=== PATIENT | male | born 1995 | race African-American/Black ===

== ENCOUNTER 2019-09-06 17:02 | Emergency (ER) | payer OTHER, SELFPAY ==
--- NOTE | 2019-09-06 17:06 | ED.GENADULT ---
HPI - General Adult General Chief complaint: Unspecified Stated complaint: other Time Seen by Provider: 09/06/19 17:35 Source: patient and RN notes reviewed Mode of arrival: ambulatory Limitations: other (Deaf, written communication) History of Present Illness HPI narrative: 24 for male presents with concern for 2-3 week history of fatigue. Reports he sleeps for approximately 5- 8 hours a night but wakes up unrefreshed, tired. Reports he drinks caffeine every day. He occasionally drinks alcohol to try to help him sleep. He denies any change in schedule, new job, new hours, new medications. Denies fever, body aches, chills, sweats, cough, short of breath, upper respiratory symptoms, sore throat. He does not have a primary care provider. MD complaint: Fatigue Related Data Home Medications Medication Instructions Recorded Confirmed No Home Medications 09/06/19 09/06/19 Allergies Allergy/AdvReac Type Severity Reaction Status Date / Time No Known Allergies Allergy Verified 09/06/19 17:37 Review of Systems Review of Systems: Narrative: CONSTITUTIONAL: Denies malaise, chills, sweats, or fever. Reports fatigue EYES: Denies visual changes ENT: Denies rhinorrhea, congestion, sinus pain, otalgia or sore throat. CARDIOVASCULAR: Denies chest pain, palpitations, or edema. RESPIRATORY: Denies cough or dyspnea. GASTROINTESTINAL: Denies abdominal pain, nausea, vomiting, diarrhea MUSCULOSKELETAL: Denies myalgia. NEUROLOGIC: Denies numbness, weakness, or headache. PSYCHIATRIC: Denies anxiety or depression. All systems reviewed & are unremarkable except as noted in HPI and below PMFSH Social History Social History Gender identity (if verbalized by the patient): Male Comments At time of signature, agree with nursing past medical, surgical, social and family history. There is no relevant family history pertinent to the presenting complaint Exam Narrative: Exam Narrative: GENERAL: Well-appearing, well-nourished, and in no acute distress. HEAD: Normocephalic, atraumatic. EYES: PERRLA, conjunctivae clear ENT: Nares clear, turbinates pink, no rhinorrhea or epistaxis. Mucous membranes moist. TM pearly bell with sharp light reflex bilaterally; no tragal tenderness. Oropharynx without erythema or lesions. Tonsils not enlarged and without exudate. NECK: Supple. No lymphadenopathy. CHEST: No respiratory distress. Clear to auscultation. No bony deformities, no asymmetry. Speaks in full sentences. HEART: Regular rate and rhythm. No murmur heard. Normal peripheral pulses. ABDOMEN: Soft, nontender, nondistended, normal active bowel sounds, no palpable masses. EXTREMITIES: Normal range of motion. No edema. Normal strength and sensation. SKIN: Warm, dry, no rash. NEURO: Alert and oriented x3. No focal deficits. PSYCH: Normal mood and affect Course Course Emergency Course: Patient is aware of diagnosis, understands and agrees to treatment plan. Anticipatory guidance given. Patient agrees to follow-up as directed and is aware of reasons to seek care at the emergency department. Portions of this record may have been created with voice recognition software Vital Signs Vital signs: Vital Signs Temperature 98.6 F 09/06/19 17:20 Pulse Rate 67 09/06/19 17:20 Respiratory Rate 16 09/06/19 17:20 Blood Pressure 128/78 09/06/19 17:20 Pulse Oximetry 99 09/06/19 17:20 Temperature 98.6 F 09/06/19 17:20 Pulse Rate 67 09/06/19 17:20 Respiratory Rate 16 09/06/19 17:20 Blood Pressure 128/78 09/06/19 17:20 Pulse Oximetry 99 09/06/19 17:20 Reviewed. Medical Decision Making MDM Narrative Medical decision making narrative: Exam findings show no acute concerns or changes; patient is non-toxic appearing and is in no distress. Patient is appropriate for outpatient treatment and follow-up. Vital Signs Vital Signs: Vital Signs Temperature 98.6 F 09/06/19 17:20 Pulse Rate 67 09/06/19 17:20 Respiratory Rate 16
[2019-09-06 17:20] VITALS: BP 128/78; PULSE 67; RESP 16; TEMP 37; O2SAT 99
== END 2019-09-06 18:02 | disposition home or self-care (01) ==
PROVIDERS: Emergency Provider Nurse Practitioner
DX: R53.83 Other fatigue (principal); H91.90 Unspecified hearing loss, unspecified ear
CPT/HCPCS: 99211; G0463

== ENCOUNTER 2020-07-14 18:08 | Emergency (ER) | payer OTHER, SELFPAY ==
[2020-07-14 19:11] VITALS: BP 120/83; PULSE 79; RESP 18; TEMP 36.7; O2SAT 100
--- NOTE | 2020-07-14 21:53 | PC.NURSE ---
Pt not in Lobby at 2134, 2144 and 2150.
== END 2020-07-15 05:27 | disposition left against medical advice (07) ==
DX: R07.89 Other chest pain (principal)
CPT/HCPCS: 99199

== ENCOUNTER 2020-10-21 18:50 | Emergency (ER) | payer OTHER, SELFPAY ==
[2020-10-21 19:00] VITALS: BP 135/92; PULSE 98; RESP 14; TEMP 37.1; O2SAT 98
--- NOTE | 2020-10-21 20:12 | ECG_ITS ---
Measurements Intervals [place] Rate: 95 P: 71 [place]: 165 QRS: 18 QRSD: 89 T: 78 QT: 323 QTc: 407 Interpretive Statements SINUS RHYTHM BASELINE ARTIFACT- I, AVR, AVL, AVF, V3 NORMAL ECG Electronically Signed On 10-21-2020 20:39:23 CDT by [place] D.O.
--- NOTE | 2020-10-21 20:33 | ED.GENADULT ---
HPI - General Adult General Chief complaint: Anxiety <Raf Rivero MD - Last Filed: 10/21/20 21:23> Stated complaint: htn, pt is deaf/mute <Raf Rivero MD - Last Filed: 10/21/20 21:23> Time Seen by Provider: 10/21/20 19:47 <Raf Rivero MD - Last Filed: 10/21/20 21:23> History of Present Illness HPI narrative: Patient is a 25-year-old male who presents ER from his place of employment after having reports of chest pain, dizziness, heart palpitations, anxiety. Patient is deaf and mute. His mother recently had a heart attack and family reports that he has been having a lot of concern over this. They report he is often anxious about his health he concurs with this. Reports he had felt like his stomach was aching earlier in the day and lasted throughout the day. Right is the date was ending his when he began to feel like his heart was racing. He tried to control it with breathing exercises. <Raf Rivero MD - Last Filed: 10/21/20 21:23> Related Data Home medications: Home Medications Medication Instructions Recorded Confirmed No Home Medications 09/06/19 09/06/19 <Raf Rivero MD - Last Filed: 10/21/20 21:23> Allergies/adverse reactions: Allergies Allergy/AdvReac Type Severity Reaction Status Date / Time No Known Allergies Allergy Verified 07/14/20 19:15 <Raf Rivero MD - Last Filed: 10/21/20 21:23> Review of Systems Review of Systems: All systems reviewed & are unremarkable except as noted in HPI and below <Raf Rivero MD - Last Filed: 10/21/20 21:23> Constitutional: Constitutional: Denies chills, Denies fever(s) and Denies weakness <Raf Rivero MD - Last Filed: 10/21/20 21:23> ENT: Denies nasal congestion and Denies sore throat <Raf Rivero MD - Last Filed: 10/21/20 21:23> Cardiovascular: Cardiovascular: Reports chest pain, Reports rapid heart rate and Denies radiating jaw, neck or arm pain <Raf Rivero MD - Last Filed: 10/21/20 21:23> Respiratory: Respiratory: Denies cough, Denies dyspnea and Denies wheezing <Raf Rivero MD - Last Filed: 10/21/20 21:23> Gastrointestinal: Gastrointestinal: Denies abdominal pain, Reports bloating, Denies nausea and Denies vomiting <Raf Rivero MD - Last Filed: 10/21/20 21:23> Neurologic: Denies headache(s), Denies focal weakness and Denies numbness <Raf Rivero MD - Last Filed: 10/21/20 21:23> Psychiatric: Psychiatric: Reports anxiety <Raf Rivero MD - Last Filed: 10/21/20 21:23> PMFSH Past Medical History Medical History: Medical History (Updated 10/21/20 @ 21:23 by Raf Rivero MD) Anxiety Deaf-mutism <Raf Rivero MD - Last Filed: 10/21/20 21:23> Surgical History Surgical History: Surgical History (Updated 10/21/20 @ 21:17 by Raf Rivero MD) No pertinent past surgical history <Raf Rivero MD - Last Filed: 10/21/20 21:23> Social History Social History: Social History Gender identity (if verbalized by the patient): Male <Raf Rivero MD - Last Filed: 10/21/20 21:23> Exam Narrative: GENERAL: Well-appearing, well-nourished, and in no acute distress. HEAD: Normocephalic, atraumatic. EYES: PERRL and EOMI. CHEST: Clear to auscultation. No respiratory distress. HEART: Regular rate and rhythm. Normal peripheral pulses. ABDOMEN: Soft, nontender, nondistended. EXTREMITIES: Normal range of motion. No edema. SKIN: Warm, dry, no rash. NEURO: Alert and oriented x3. <Raf Rivero MD - Last Filed: 10/21/20 21:23> Course Reevaluation(s) Reevaluation #1: Patient reports feeling much improved results reviewed with patient. Patient anxious to leave given his symptoms improved and his work-up was negative patient is appropriate for outpatient monitoring. <Sabas Bishop MD - Last Filed: 10/21/20 23:30> Date: 10/21/20 <Sabas Bishop MD - Last Filed:
[2020-10-21 21:44] LABS: Basophils Percent Auto 0.3 % (0.2-1.2); Eosinophils Absolute Auto 0.1 K/mm3 (0-0.3); Eosinophils Percent Auto 0.5 % (0-4.4); Hematocrit 44.2 % (42.0-52.0); Hemoglobin 14.5 g/dL (14.0-18.0); Immature Granulocyte Absolute 0.04 K/mm3 (0.00-0.031); Immature Granulocyte Percent A 0.4 % (0-0.5); Lymphocytes Absolute Auto 1.41 K/mm3 (0.9-3.2); Lymphocytes Percent Auto 12.9 % (18.3-44.2); Mean Corpuscular HGB Conc 32.8 g/dl (32-36); Mean Corpuscular Hemoglobin 24.2 pg (26-34); Mean Corpuscular Volume 73.7 fl (80-100); Mean Platelet Volume 10.3 fl (7.4-10.4); Monocytes Absolute Auto 0.8 K/mm3 (0.1-0.6); Monocytes Percent Auto 7.1 % (2.6-8.5); Neutrophils Absolute Auto 8.6 K/mm3 (1.3-6.7); Neutrophils Percent Auto 78.8 % (45.5-73.1); Platelet Count Result 224 k/mm3 (150-375); Red Cell Distribution Width 13.8 % (11.5-14.5); White Blood Count 10.9 K/mm3 (4.5-10.0)
[2020-10-21 21:47] VITALS: BP 132/81; PULSE 82
[2020-10-21 21:48] VITALS: BP 124/87; BP 129/89; PULSE 81; PULSE 89
[2020-10-21 22:34] LABS: Anion Gap 9 mmol/L (8-16); Blood Urea Nitrogen 19 mg/dL (9-20); Calcium 9.9 mg/dL (8.4-10.2); Carbon Dioxide 24 mmol/L (22-30); Chloride 102 mmol/L (98-107); Estimated CRCL calculation 75 ml/min; Estimated Glomerular Filt Rate > 60; Glucose 100 mg/dL (65-110); Sodium 135 mmol/L (137-145)
[2020-10-21 22:46] LABS: Troponin I < 0.012 ng/mL (0.000-0.034)
[2020-10-21 23:20] VITALS: BP 130/74; PULSE 89; RESP 18; O2SAT 99
== END 2020-10-21 23:22 | disposition home or self-care (01) ==
PROVIDERS: Emergency Medicine; Emergency Provider Emergency Medicine
DX: F41.9 Anxiety disorder, unspecified (principal)
CPT/HCPCS: 36415; 80048; 84484; 85025; 93005; 99283

== ENCOUNTER 2021-08-05 09:59 | Outpatient (CLI) | payer OTHER, SELFPAY ==
--- NOTE | ~2021-08-05 | XR_ITS ---
EXAMINATION: XR abdomen/kub 1V DATE: 08/05/2021 10:24 INDICATION: Constipation. TECHNIQUE: A supine view of the abdomen on 2 radiographs was obtained. COMPARISON: None. FINDINGS: There are no dilated loops of bowel. There is a small volume of stool in the colon. A calci fication in left pelvis is likely a phlebolith. IMPRESSION: 1. Normal bowel gas pattern. Reviewed, dictated and finalized at location A.
== END 2021-08-05 10:00 | disposition home or self-care (01) ==
LOC: ANHIMG 10:02
PROVIDERS: PCP Physician Assistant; Visit Provider Physician Assistant
DX: K59.00 Constipation, unspecified (principal)
CPT/HCPCS: 74018

== ENCOUNTER 2021-12-16 16:09 | Emergency (ER) | payer OTHER, SELFPAY ==
[2021-12-16] VITALS (17 sets, daily range): BP systolic 136–154; BP diastolic 86–106; PULSE 95–118; RESP 15–19; TEMP 36.6; O2SAT 99–100
--- NOTE | ~2021-12-16 | XR_ITS ---
EXAMINATION: XR chest 2V Exam Date/Time: 12/16/2021 16:44 CDT HISTORY: palpitations, cp, dizziness; hearing impaired Comparison: None available. RESULT: Lines, tubes, and devices: None. Lungs and pleura: Clear. Cardiomediastinal silhouette: Normal. Other: No acute osseous or upper abdominal finding. IMPRESSION: No acute cardiopulmonary process. Reviewed, dictated and finalized at location K.
--- NOTE | 2021-12-16 16:12 | ECG_ITS ---
Measurements Intervals [place] Rate: 127 P: 70 [place]: 165 QRS: 56 QRSD: 82 T: 60 QT: 264 QTc: 384 Interpretive Statements SINUS TACHYCARDIA ABNORMAL ECG COMPARED TO ECG 10/21/2020 20:37:26 SINUS TACHYCARDIA NOW PRESENT Electronically Signed On 12-16-2021 20:20:38 CDT by [place] D.O.
[2021-12-16 16:30] LABS: Basophils Percent Auto 0.3 % (0.2-1.2); Eosinophils Percent Auto 0.3 % (0-4.4); Hematocrit 43.5 % (42.0-52.0); Hemoglobin 14.4 g/dL (14.0-18.0); Immature Granulocyte Absolute 0.04 K/mm3 (0.00-0.031); Immature Granulocyte Percent A 0.4 % (0-0.5); Lymphocytes Absolute Auto 1.77 K/mm3 (0.9-3.2); Lymphocytes Percent Auto 16.7 % (18.3-44.2); Mean Corpuscular HGB Conc 33.1 g/dl (32-36); Mean Corpuscular Hemoglobin 24.4 pg (26-34); Mean Corpuscular Volume 73.7 fl (80-100); Mean Platelet Volume 9.7 fl (7.4-10.4); Monocytes Absolute Auto 0.7 K/mm3 (0.1-0.6); Monocytes Percent Auto 6.3 % (2.6-8.5); Platelet Count Result 275 k/mm3 (150-375); Red Cell Distribution Width 14.6 % (11.5-14.5); White Blood Count 10.6 K/mm3 (4.5-10.0)
[2021-12-16 16:44] LABS: Partial Thromboplastin Time 25.8 SECONDS (22.3-36.8); Prothrombin Time 13.2 Seconds (11.1-14.7)
[2021-12-16 16:47] LABS: Alanine Aminotransferase 22 U/L (6-50); Albumin Level 4.9 g/dL (3.5-5.1); Alkaline Phosphatase 105 U/L (38-126); Anion Gap 13 mmol/L (8-16); Aspartate Amino Transferase 32 U/L (17-59); Bilirubin,Total 0.7 mg/dL (0.2-1.3); Blood Urea Nitrogen 16 mg/dL (9-20); Calcium 9.3 mg/dL (8.4-10.2); Carbon Dioxide 25 mmol/L (22-30); Chloride 101 mmol/L (98-107); Estimated CRCL calculation 94 ml/min; Estimated Glomerular Filt Rate > 60; Glucose 222 mg/dL (65-110); Lipase 37 U/L (23-300); Potassium 3.1 mmol/L (3.4-5.0); Sodium 139 mmol/L (137-145)
[2021-12-16 16:59] LABS: Troponin I < 0.012 ng/mL (0.000-0.034)
--- NOTE | 2021-12-16 17:58 | ED.ARRPALP ---
HPI - Arrhythmia/Palpitations General Chief Complaint: Arrhythmia/Palpitations Stated Complaint: rapid heart rate after using marijuana Time Seen by Provider: 12/16/21 17:24 History of Present Illness HPI narrative: 26-year-old deaf individual presents to the emergency room via EMS for evaluation of a rapid heart rate and chest pain after eating a pot brownie. According to EMS, he was found in front of a known residence where methamphetamine is sold and used. Patient states he began experiencing symptoms 60 to 90 minutes following the ingestion of the marijuana infused baked item. Patient denies any radiating pain, shortness of breath, syncopal episodes, nausea or vomiting. Related Data Home Medications Medication Instructions Recorded Confirmed No Home Medications 09/06/19 09/06/19 Allergies Allergy/AdvReac Type Severity Reaction Status Date / Time No Known Allergies Allergy Verified 12/16/21 16:30 Review of Systems Review of Systems: CONSTITUTIONAL: Denies fever, chills, or sweats. EYES: Denies visual changes, redness, or discharge. ENT: Denies rhinorrhea, congestion, sore throat, or otalgia. CARDIOVASCULAR: Reports chest pain RESPIRATORY: Denies cough or dyspnea. GASTROINTESTINAL: Denies abdominal pain, nausea, vomiting, or diarrhea. GENITOURINARY: Denies dysuria or hematuria. SKIN: Denies rash or itching. MUSCULOSKELETAL: Denies back pain, joint pain, or myalgia. NEUROLOGIC: Denies headache, numbness, dizziness, or weakness. PSYCHIATRIC: Denies anxiety or depression. PMFSH Past Medical History Medical History Anxiety Deaf-mutism Surgical History Surgical History No pertinent past surgical history Social History Social History Gender identity (if verbalized by the patient): Male Exam Narrative: GENERAL: Well-appearing, well-nourished, no physical limitations, and in no acute distress. HEAD: Normocephalic, atraumatic. EYES: Conjunctivae normal, PERRLA and EOMI. CHEST: Clear to auscultation. No respiratory distress. No wheezes rales or rhonchi. HEART: Regular rate and rhythm. No murmur heard. Normal peripheral pulses. BACK: No CVA tenderness; No cervical/thoracic/lumbar tenderness, step-offs, bony abnormality; FROM EXTREMITIES: Normal range of motion. No edema. No clubbing or cyanosis SKIN: Warm, dry, no rash. No noted wounds NEURO: No focal deficits. Alert and oriented x3. MAEW. CN's II-XI intact bilaterally, normal gait PSYCH: Cooperative. Normal mood and affect. Course Vital Signs Vital signs: Vital Signs Temperature 36.6 C 12/16/21 16:25 Pulse Rate 118 H 12/16/21 16:25 Respiratory Rate 16 12/16/21 16:25 Blood Pressure 153/93 H 12/16/21 16:25 Pulse Oximetry 100 12/16/21 16:25 Temperature 36.6 C 12/16/21 16:25 Pulse Rate 111 H 12/16/21 18:01 Respiratory Rate 16 12/16/21 18:01 Blood Pressure 136/86 12/16/21 19:01 Pulse Oximetry 100 12/16/21 19:15 Oxygen Delivery Room Air 12/16/21 17:44 MDM - Arrhythmia/Palpitations Lab Data Result diagrams: 12/16/21 16:22 12/16/21 16:22 Labs: Lab Results 12/16/21 12/16/21 12/16/21 Range/Units 16:22 16:22 16:22 WBC 10.6 H (4.5-10.0) K/mm3 RBC 5.90 (4.6-6.20) M/mm3 Hgb 14.4 (14.0-18.0) g/dL Hct 43.5 (42.0-52.0) % MCV 73.7 L (80-100) fl MCH 24.4 L (26-34) pg MCHC 33.1 (32-36) g/dl RDW 14.6 H (11.5-14.5) % Plt Count 275 (150-375) k/mm3 MPV 9.7 (7.4-10.4) fl Immature Gran % (Auto) 0.4 (0-0.5) % Neut % (Auto) 76.0 H (45.5-73.1) % Lymph % (Auto) 16.7 L (18.3-44.2) % [place] % (Auto) 6.3 (2.6-8.5) % Eos % (Auto) 0.3 (0-4.4) % Baso % (Auto) 0.3 (0.2-1.2) % Lymph # (Auto) 1.77 (0.9-3.2) K/mm3 [place] # (Auto) 0.7 H (0.1-0.6) K/mm3 E
[2021-12-16 20:13] LABS: Amphetamine Screen Urine Negative (Negative); Barbiturate Screen Urine Negative (Negative); Benzodiazepines Screen Urine Negative (Negative); Cannabinoid Screen Urine Positive (Negative); Cocaine Screen Urine Negative (Negative); Methadone Screen Urine Negative (Negative); Opiate Screen Urine Negative (Negative); Phencyclidine Screen Urine Negative (Negative)
[2021-12-16 20:22] LABS: Troponin I 0.021 ng/mL (0.000-0.034)
[2021-12-16 20:27] LABS: Appearance Urine Clear (Clear); Bilirubin Urine Negative (Negative); Blood Urine 1+ (Negative); Color Urine Yellow (Yellow); Glucose Urine UA Trace mg/dL (Negative); Ketones Urine Negative (Negative); Leukocyte Esterase Ur Negative LEU/UL (Negative); Nitrate Urine Negative (Negative); Protein Urine 1+ mg/dL (Negative); Urobilinogen Urine 0.2 mg/dL (<2.0); pH Urine 5.5 (5.0-9.0)
[2021-12-16 20:31] LABS: RBC Urine 0-2 /hpf (0-2); WBC Urine 0-3 /hpf
[2021-12-16 20:33] LABS: Add Urine Microscopic? YES
== END 2021-12-16 20:46 | disposition home or self-care (01) ==
PROVIDERS: Emergency Medicine; Emergency Provider Nurse Practitioner Family; PCP Physician Assistant
DX: R00.2 Palpitations (principal); F41.9 Anxiety disorder, unspecified; T40.715A Adverse effect of cannabis, initial encounter; R00.0 Tachycardia, unspecified
CPT/HCPCS: 36415; 71046; 80053; 80307; 81001; 83690; 84484; 85025; 85610; 85730; 93005; 99284

== ENCOUNTER 2022-03-19 01:55 | Emergency (ER) | payer OTHER, SELFPAY ==
--- NOTE | ~2022-03-19 | XR_ITS ---
Clinical Indication: Chest pain PA and lateral views of the chest: Comparison: 12/16/2021 Findings: The lungs are clear, without evidence of focal consolidation or pleural effusion. Cardiome diastinal silhouette is within normal limits. Bones and soft tissues are unremarkable. Impression: Normal chest. Reviewed, dictated and finalized at [facility]. NESS TRANSFORMATION ANALYST Impression: Normal chest.
[2022-03-19 01:59] VITALS: BP 128/81; PULSE 84; RESP 19; TEMP 36.8; O2SAT 100
[2022-03-19 02:04] VITALS: PULSE 88
--- NOTE | 2022-03-19 02:05 | ECG_ITS ---
Measurements Intervals [place] Rate: 84 P: 61 MT: 183 QRS: 15 QRSD: 89 T: 34 QT: 346 QTc: 411 Interpretive Statements SINUS RHYTHM NONSPECIFIC ST ELEVATION [0.05+ mV ST ELEVATION] LEFT VENTRICULAR HYPERTROPHY COMPARED TO ECG 12/16/2021 16:19:01 HEART RATE IS REDUCED Electronically Signed On 03-19-2022 14:48:16 HIDE MEASURING MACHINE OPERATOR by Danial Villanueva M.D.
[2022-03-19 03:15] VITALS: BP 112/72; PULSE 71; O2SAT 99
--- NOTE | 2022-03-19 03:23 | ED.ARRPALP ---
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 He was a little worried because his mother has a history of a heart attack at age 47. No nausea or vomiting, shortness of breath, fevers or chills, no recent trauma or cough. Related Data Home Medications Medication Instructions Recorded Confirmed No Home Medications 09/06/19 09/06/19 Allergies Allergy/AdvReac Type Severity Reaction Status Date / Time No Known Allergies Allergy Verified 03/19/22 02:02 Review of Systems Review of Systems: CONST: No fever. HEENT: No sore throat C/V: chest pain and palpitations now resolved RESP: No cough GI: No nausea vomit : No dysuria. M/S: No joint pain. SKIN: No rash. NEURO: [No headache or focal numbness or weakness] PSYCH: Anxious PMFSH Past Medical History Medical History Anxiety Deaf-mutism Surgical History Surgical History No pertinent past surgical history Social History Social History Gender identity (if verbalized by the patient): Male Exam Narrative: EXAMINATION OF ORGAN SYSTEMS/BODY AREAS: Constitutional: Vital signs per nursing GENERAL:[No acute distress, non-toxic appearing.] HEAD: Normal with no signs of head trauma. EYES: EOMI, conjunctiva normal ENT: Deaf LUNGS: Nonlabored breathing. Clear to auscultation bilateral HEART: [Regular rate and rhythm] ABD: [Soft], [nontender to palpation] EXT: Normal range of motion SKIN: [No rashes or lesions.] NEURO: [Alert and oriented x 3. No gross focal sensory or strength deficits.] PSYCH: Normal affect Course Vital Signs Vital signs: Vital Signs Temperature 98.3 F 03/19/22 01:59 Pulse Rate 84 03/19/22 01:59 Respiratory Rate 19 03/19/22 01:59 Blood Pressure 128/81 03/19/22 01:59 Pulse Oximetry 100 03/19/22 01:59 Oxygen Delivery Room Air 03/19/22 01:59 Temperature 98.3 F 03/19/22 01:59 Pulse Rate 71 03/19/22 03:15 Respiratory Rate 19 03/19/22 01:59 Blood Pressure 112/72 03/19/22 03:15 Pulse Oximetry 99 03/19/22 03:15 Oxygen Delivery Room Air 03/19/22 01:59 MDM - Arrhythmia/Palpitations MDM Narrative Medical decision making narrative: ED COURSE AND MEDICAL DECISION MAKIN-year-old presenting with chest pain. EKG done in triage negative for acute ischemic changes. Cardiac workup is initiated. EKG: Performed in triage and interpreted by me. Normal sinus rhythm. Rate 84. Normal axis. DC normal. QRS duration normal. QTc normal. No pathologic Q waves. No ST segment elevation or depression to suggest acute ischemia. No RV strain pattern. He does have some ST abnormalities in V2 and V3 and noted were also present on a prior EKG in October 2018 No acute ischemic changes on EKG and resolved symptoms without risk factors makes ACS unlikely. Negative PERC making PE unlikely. Presentation not consistent with dissection or aneurysm without radiation of pain or pulse deficits. CXR on my own interpretation negative for mediastinal widening. No abdominal pain or signs of sepsis that would be concerning for esophageal perforation or mediastinitis. No cardiomegaly or JVD to suggest pericardial effusion/tamponade. On repeat evaluation just prior to discharge, the patient is no acute distress, he is also asymptomatic. I had a long discussion with the patient and with shared decision making, [he] is comfortable with outpatient management. [He] was given clear return instructions by myself in per
== END 2022-03-19 04:18 | disposition home or self-care (01) ==
PROVIDERS: Emergency Provider Emergency Medicine; PCP Physician Assistant
DX: R00.2 Palpitations (principal); H91.3 Deaf nonspeaking, not elsewhere classified; I51.7 Cardiomegaly; R94.31 Abnormal electrocardiogram [ECG] [EKG]
CPT/HCPCS: 71046; 93005; 99283

== ENCOUNTER 2022-04-16 07:01 | Emergency (ER) | payer OTHER, SELFPAY ==
--- NOTE | ~2022-04-16 | XR_ITS ---
EXAMINATION: XR chest 2V DATE: 04/16/2022 11:04 INDICATION: Chest pressure. Chest pain. TECHNIQUE: Frontal and lateral views of the chest were obtained. COMPARISON: Chest 2 views 03/19/2022 FINDINGS: There is no pneumonia, pleural effusion, or pneumothorax. The heart size is normal. IMPRESSION: 1. No acute cardiopulmonary disease. Reviewed, dictated and finalized at location A. N MARKETER
[2022-04-16 07:00] VITALS: BP 144/96; PULSE 90; RESP 16; TEMP 37.2; O2SAT 98
--- NOTE | 2022-04-16 07:05 | ECG_ITS ---
Measurements Intervals [place] Rate: 86 P: 64 [place]: 189 QRS: 33 QRSD: 87 T: 64 QT: 345 QTc: 414 Interpretive Statements SINUS RHYTHM NONSPECIFIC ST ELEVATION IN ANTERIOR LEADS BORDERLINE ECG COMPARED TO ECG 03/19/2022 02:08:32 NO SIGNIFICANT CHANGES Electronically Signed On 04-16-2022 7:38:51 CHARGE MASTER SPECIALIST by [place] D.O.
[2022-04-16] MEDS: ASPIRIN 81 MG CHEWABLE TABLET 324 MG PO (07:20)
[2022-04-16 07:33] VITALS: PULSE 98
--- NOTE | 2022-04-16 07:36 | PC.NURSE ---
at bedside when patient states he feels chest pressure. Noted heart rate increase from 98 to 130. Patient denies any other symptoms.
[2022-04-16 07:43] LABS: Basophils Percent Auto 0.5 % (0.2-1.2); Eosinophils Absolute Auto 0.1 K/mm3 (0-0.3); Eosinophils Percent Auto 1.2 % (0-4.4); Hemoglobin 13.7 g/dL (14.0-18.0); Immature Granulocyte Absolute 0.02 K/mm3 (0.00-0.031); Immature Granulocyte Percent A 0.3 % (0-0.5); Lymphocytes Percent Auto 13.7 % (18.3-44.2); Mean Corpuscular HGB Conc 32.6 g/dl (32-36); Mean Corpuscular Hemoglobin 24.2 pg (26-34); Mean Corpuscular Volume 74.1 fl (80-100); Mean Platelet Volume 9.6 fl (7.4-10.4); Monocytes Absolute Auto 0.6 K/mm3 (0.1-0.6); Neutrophils Absolute Auto 4.9 K/mm3 (1.3-6.7); Neutrophils Percent Auto 75.3 % (45.5-73.1); Platelet Count Result 219 k/mm3 (150-375); Red Blood Count 5.67 M/mm3 (4.6-6.20); Red Cell Distribution Width 13.7 % (11.5-14.5); White Blood Count 6.6 K/mm3 (4.5-10.0)
--- NOTE | 2022-04-16 07:48 | PC.NURSE ---
automotive design layout drafter used for further assessment. Patient states he has anxiety, but does not take medications. He reports that he drinks alcohol; which he did yesterday. Reports smoking marijuana also. He states he does not have pain right now, but had it earlier when the nurse was in the room. (Refer to previous note). Patient reports no further symptoms.
[2022-04-16 07:58] LABS: Alanine Aminotransferase 20 U/L (6-50); Albumin Level 4.1 g/dL (3.5-5.1); Alkaline Phosphatase 81 U/L (38-126); Anion Gap 5 mmol/L (8-16); Aspartate Amino Transferase 30 U/L (17-59); Bilirubin,Total 0.5 mg/dL (0.2-1.3); Blood Urea Nitrogen 9 mg/dL (9-20); Calcium 8.3 mg/dL (8.4-10.2); Carbon Dioxide 30 mmol/L (22-30); Chloride 101 mmol/L (98-107); Estimated CRCL calculation 93 ml/min; Estimated Glomerular Filt Rate > 60; Glucose 98 mg/dL (65-110); Potassium 3.6 mmol/L (3.4-5.0); Sodium 136 mmol/L (137-145)
[2022-04-16 07:59] LABS: Magnesium 1.8 mg/dL (1.6-2.3)
[2022-04-16 08:08] LABS: Influenza A QL RT-PCR Negative (Negative); Influenza B QL RT-PCR Negative (Negative); RSV RNA, RT-PCR Negative (Negative); SARS-CoV-2 RNA PCR Negative
[2022-04-16 08:09] LABS: D Dimer < 0.27 ug/mL (<0.48); Troponin I < 0.012 ng/mL (0.000-0.034)
[2022-04-16 08:20] LABS: Platelet Estimate Adequate (Adequate)
[2022-04-16 08:21] LABS: Schistocytes None Seen (NORMAL)
[2022-04-16 08:40] VITALS: BP 122/96; PULSE 82; RESP 16; O2SAT 99
[2022-04-16 09:48] VITALS: BP 130/94; PULSE 70; RESP 14; O2SAT 100
[2022-04-16 10:56] LABS: Troponin I < 0.012 ng/mL (0.000-0.034)
[2022-04-16 11:07] VITALS: BP 138/86; PULSE 76; RESP 16; O2SAT 100
--- NOTE | 2022-04-16 11:29 | ED.GENADULT ---
HPI - General Adult General Chief complaint: Chest Pain Stated complaint: feels like heart rate is going up & down History of Present Illness HPI narrative: 26-year-old male presenting to the emergency department for evaluation of intermittent heart palpitations. Patient states that he does have history of anxiety that is untreated. Patient reports use of alcohol and cannabis to help control his anxiety. Patient was concerned that this is not good for him so he presented for evaluation. Patient states he did have some anxiety and chest pain this morning but while in the emergency department he denies any current symptoms. Patient is hearing impaired and the [employer] industrial relations manager was used for this encounter. Related Data Home Medications Medication Instructions Recorded Confirmed No Home Medications 09/06/19 09/06/19 Allergies Allergy/AdvReac Type Severity Reaction Status Date / Time No Known Allergies Allergy Verified 04/16/22 07:50 Review of Systems Review of Systems: CONSTITUTIONAL: Denies fever, chills, or sweats. EYES: Denies visual changes, redness, or discharge. ENT: Denies rhinorrhea, congestion, sore throat, or otalgia. CARDIOVASCULAR: Heart palpitations RESPIRATORY: Denies cough or dyspnea. GASTROINTESTINAL: Denies abdominal pain, nausea, vomiting, or diarrhea. GENITOURINARY: Denies dysuria or hematuria. SKIN: Denies rash or itching. MUSCULOSKELETAL: Denies back pain, joint pain, or myalgia. NEUROLOGIC: Denies headache, numbness, or weakness. All systems reviewed & are unremarkable except as noted in HPI and below PMFSH Past Medical History Medical History Anxiety Deaf-mutism Surgical History Surgical History No pertinent past surgical history Social History Social History Gender identity (if verbalized by the patient): Male Exam Narrative: APPEARANCE: Well appearing, no pain, no distress, well-nourished. HEAD: normocephalic, atraumatic. EYES: PERRLA/EOMI, conjunctivae clear. NECK: Supple. No adenopathy, no masses. RESPIRATORY: Airway patent, respirations nonlabored. Clear to auscultation bilaterally, no rales, rhonchi, wheezing. CARDIOVASCULAR: Regular rate and rhythm without murmurs rubs or gallops. No reproducible chest wall tenderness to palpation ABDOMINAL: Soft, nontender, nondistended, normal bowel sounds MUSCULOSKELETAL: Moves all extremities. Strength/ROM intact, No edema, No calf tenderness. NEURO: Alert. Cranial nerves II through XII intact. SKIN: Warm, dry. Normal Color Course Course Emergency Course: 18-year-old male with anxiety and chest pain. Patient had negative serial troponins. Patient is afebrile with no leukocytosis. Patient's D-dimer was negative so low concern for pulm embolism. Patient's COVID and influenza were negative. Chest x-ray showed no acute cardiopulmonary abnormality. Patient had normal electrolytes and a normal TSH and mag. With a negative work-up. Patient is deaf and does use ASL. All conversations were facilitated through the use of the [employer] industrial relations manager. Patient was advised of close follow-up with her primary care physician and to decrease his alcohol consumption. Vital Signs Vital signs: Vital Signs Temperature 98.9 F 04/16/22 07:00 Pulse Rate 90 04/16/22 07:00 Respiratory Rate 16 04/16/22 07:00 Blood Pressure 144/96 H 04/16/22 07:00 Pulse Oximetry 98 04/16/22 07:00 Oxygen Delivery Room Air 04/16/22 07:00 Temperature 98.9 F 04/16/22 07:00 Pulse Rate 76 04/16/22 11:44 Respiratory Rate 16 04/16/22 11:44 Blood Pressure 116/74 04/16/22 11:44 Pulse Oximetry 99 04/16/22 11:44 Oxygen Delivery Room Air 04/16/22 07:00 Medical Decision Making Vital Signs Vital Signs: Vital Signs Temperature 98.9 F 04/16/22 07:00 Pulse Rate 90 04/16/22 07:00 Respirat
[2022-04-16 11:44] VITALS: BP 116/74; PULSE 76; RESP 16; O2SAT 99
== END 2022-04-16 11:45 | disposition home or self-care (01) ==
PROVIDERS: Emergency Provider Emergency Medicine; PCP Physician Assistant
DX: R07.9 Chest pain, unspecified (principal); F41.9 Anxiety disorder, unspecified; H91.3 Deaf nonspeaking, not elsewhere classified; Z20.822 Contact with and (suspected) exposure to COVID-19
CPT/HCPCS: 36415; 71046; 80053; 83735; 84443; 84484; 85025; 85380; 87637; 93005; 99284; A9270

== ENCOUNTER 2022-11-26 19:07 | Emergency (ER) | payer SELFPAY ==
--- NOTE | 2022-11-26 19:30 | ECG_ITS ---
Measurements Intervals [place] Rate: 73 P: 71 [place]: 179 QRS: 59 QRSD: 85 T: 67 QT: 359 QTc: 396 Interpretive Statements [address] R[address] ELEVATION SUGGESTIVE OF PERICARDITIS, OR EARLY REPOLARIZATION Electronically Signed On 11-27-2022 17:11:49 CDT by Humza Christie M.D.
[2022-11-26 19:31] VITALS: BP 132/86; PULSE 80; RESP 16; TEMP 37.1; O2SAT 100
== END 2022-11-27 01:17 | disposition left against medical advice (07) ==
PROVIDERS: Emergency Provider Emergency Medicine; PCP Physician Assistant
DX: R00.2 Palpitations (principal)
CPT/HCPCS: 93005; 99199

== ENCOUNTER 2023-08-22 13:22 | Emergency (ER) | payer SELFPAY ==
--- NOTE | ~2023-08-22 | XR_ITS ---
EXAMINATION: XR chest 2V DATE: 08/22/2023 13:59 INDICATION: Chest pains, palpitations and tachycardia. TECHNIQUE: PA and lateral views of the chest were obtained. COMPARISON: Chest radiograph dated 04/16/2022 FINDINGS: The lungs remain clear with no focal airspace opacities, pulmonary edema, pleural effusion or pneumot horax. The cardiomediastinal silhouette is normal. 8 degree thoracic levocurvature. IMPRESSION: 1. No acute cardiopulmonary disease. Reviewed, dictated and finalized at location A.
--- NOTE | 2023-08-22 13:29 | ECG_ITS ---
Test Date: 2023-08-22 13:34:37 Measurements Intervals [place] Rate: 118 P: 71 [place]: 158 QRS: 26 QRSD: 94 T: 34 QT: 279 QTc: 391 Interpretive Statements SINUS TACHYCARDIA ABNORMAL ECG No previous ECG available for comparison Electronically Signed On 08-22-2023 13:37:12 CDT by [place] D.O.
[2023-08-22 13:35] VITALS: BP 119/97; PULSE 108; RESP 18; TEMP 36.6; O2SAT 100
--- NOTE | 2023-08-22 15:58 | ED.CHESTPAIN ---
HPI - Chest Pain General Chief Complaint: Chest Pain Stated Complaint: heart attack Time Seen by Provider: 08/22/23 15:58 Focused HPI: Patient is a 28 y/o male who presents to the ED with c/o CP and dizziness. Patient is hearing impaired. Communicated through Notes hugo on the phone. Patient reports having dizziness/lightheadedness, racing heart palpitations, and midsternal chest pain. States he feels near syncopal. He does admit to feeling anxious. These symptoms started around 130 pm today. Denies significant shortness of breath. Denies lower extremity pain/swelling. GENERAL: Mildly anxious-appearing, well-nourished, and in no acute distress. HEAD: Normocephalic, atraumatic. CHEST: Clear to auscultation. ?No respiratory distress. HEART: Borderline tachycardic with regular rhythm.? NEURO: ?Alert and oriented x3. Patient screened in triage and initial orders placed.? ?Additional care and disposition to be based upon?diagnostic testing and treatment. Source: patient Mode of arrival: ambulatory Limitations: no limitations Related Data Home Medications Medication Instructions Recorded Confirmed No Home Medications 09/06/19 09/06/19 Allergies Allergy/AdvReac Type Severity Reaction Status Date / Time No Known Allergies Allergy Verified 08/22/23 16:41 PMFSH Past Medical History Medical History Anxiety Deaf-mutism Surgical History Surgical History No pertinent past surgical history Social History Social History Gender identity (if verbalized by the patient): Male Course Vital Signs Vital signs: Vital Signs Temperature 97.9 F 08/22/23 13:35 Pulse Rate 108 H 08/22/23 13:35 Respiratory Rate 18 08/22/23 13:35 Blood Pressure 119/97 H 08/22/23 13:35 Pulse Oximetry 100 08/22/23 13:35 Oxygen Delivery Room Air 08/22/23 13:35 Temperature 97.9 F 08/22/23 13:35 Pulse Rate 92 08/22/23 18:36 Respiratory Rate 16 08/22/23 18:36 Blood Pressure 143/88 H 08/22/23 18:36 Pulse Oximetry 100 08/22/23 18:36 Oxygen Delivery Room Air 08/22/23 16:31 MDM - Chest Pain MDM Narrative Medical decision making narrative: MSE by HUGO in triage. Lab Data 08/22/23 16:06 08/22/23 16:06 Labs: Lab Results 08/22/23 08/22/23 08/22/23 Range/Units 16:06 16:06 19:26 WBC 11.7 H (4.5-10.0) K/mm3 RBC 5.82 (4.6-6.20) M/mm3 Hgb 14.6 (14.0-18.0) g/dL Hct 43.7 (42.0-52.0) % MCV 75.1 L (80-100) fl MCH 25.1 L (26-34) pg MCHC 33.4 (32-36) g/dl RDW 14.3 (11.5-14.5) % Plt Count 249 (150-375) k/mm3 MPV 9.9 (7.4-10.4) fl Immature Gran % (Auto) 0.4 (0-0.5) % Neut % (Auto) 84.3 H (45.5-73.1) % Lymph % (Auto) 7.9 L (18.3-44.2) % [place] % (Auto) 6.9 (2.6-8.5) % Eos % (Auto) 0.2 (0-4.4) % Baso % (Auto) 0.3 (0.2-1.2) % Lymph # (Auto) 0.92 (0.9-3.2) K/mm3 [place] # (Auto) 0.8 H (0.1-0.6) K/mm3 Eos # (Auto) 0.0 (0-0.3) K/mm3 Baso # (Auto) 0.0 (0.0-0.1) K/mm3 Abs Immat Gran (auto) 0.05 H (0.00-0.031) K/mm3 Absolute Neuts (auto) 9.8 H (1.3-6.7) K/mm3 Absolute Nucleated RBC 0.000 (0.0-0.012) K/mm3 Nucleated RBC % 0.0 (0.0-0.2) % PT 13.1 (11.1-14.7) Seconds INR 1.0 APTT 28.0 (22.3-36.8) Seconds D-Dimer < 0.27 Cancelled (<0.48) ug/mL Sodium 138 (137-145) mmol/L Potassium 3.8 (3.4-5.0) mmol/L Chloride 102 (98-107) mmol/L Carbon Dioxide 29 (22-30) mmol/L Anion Gap 7 (4-12) mmol/L BUN 15 D (9-20) mg/dL Creatinine 1.00 (0.7-1.3) mg/dL Estim Creat Clear Calc 74 ml/min Estimated GFR > 60 (59 - ) Glucose 109 (65-110) mg/dL Calcium 9.3 (8.4-10.2) mg/dL Magnesium 1.6 (1.6-2.3) mg/dL Total Bilirubin 0.5 (0.2-1.3) mg/dL AST 29 (17-59)
[2023-08-22 16:16] LABS: Basophils Percent Auto 0.3 % (0.2-1.2); Eosinophils Percent Auto 0.2 % (0-4.4); Hematocrit 43.7 % (42.0-52.0); Hemoglobin 14.6 g/dL (14.0-18.0); Immature Granulocyte Absolute 0.05 K/mm3 (0.00-0.031); Immature Granulocyte Percent A 0.4 % (0-0.5); Lymphocytes Absolute Auto 0.92 K/mm3 (0.9-3.2); Lymphocytes Percent Auto 7.9 % (18.3-44.2); Mean Corpuscular HGB Conc 33.4 g/dl (32-36); Mean Corpuscular Hemoglobin 25.1 pg (26-34); Mean Corpuscular Volume 75.1 fl (80-100); Mean Platelet Volume 9.9 fl (7.4-10.4); Monocytes Absolute Auto 0.8 K/mm3 (0.1-0.6); Monocytes Percent Auto 6.9 % (2.6-8.5); Neutrophils Absolute Auto 9.8 K/mm3 (1.3-6.7); Neutrophils Percent Auto 84.3 % (45.5-73.1); Platelet Count Result 249 k/mm3 (150-375); Red Blood Count 5.82 M/mm3 (4.6-6.20); Red Cell Distribution Width 14.3 % (11.5-14.5); White Blood Count 11.7 K/mm3 (4.5-10.0)
[2023-08-22 16:24] LABS: Magnesium 1.6 mg/dL (1.6-2.3)
[2023-08-22 16:25] LABS: Alanine Aminotransferase 21 U/L (6-50); Albumin Level 4.8 g/dL (3.5-5.1); Alkaline Phosphatase 108 U/L (38-126); Anion Gap 7 mmol/L (4-12); Aspartate Amino Transferase 29 U/L (17-59); Bilirubin,Total 0.5 mg/dL (0.2-1.3); Blood Urea Nitrogen 15 mg/dL (9-20); Calcium 9.3 mg/dL (8.4-10.2); Carbon Dioxide 29 mmol/L (22-30); Chloride 102 mmol/L (98-107); Estimated CRCL calculation 74 ml/min; Estimated Glomerular Filt Rate > 60; Glucose 109 mg/dL (65-110); Lipase 49 U/L (23-300); Potassium 3.8 mmol/L (3.4-5.0); Prothrombin Time 13.1 Seconds (11.1-14.7); Sodium 138 mmol/L (137-145)
[2023-08-22 16:30] VITALS: BP 136/93; PULSE 99; RESP 16; O2SAT 100
[2023-08-22 16:37] LABS: Troponin I < 0.012 ng/mL (0.000-0.034)
[2023-08-22 16:38] LABS: D Dimer < 0.27 ug/mL (<0.48)
[2023-08-22 16:39] VITALS: BP 137/93; PULSE 92
[2023-08-22 16:40] VITALS: BP 141/89; BP 147/99; PULSE 116
[2023-08-22 18:36] VITALS: BP 143/88; PULSE 92; RESP 16; O2SAT 100
--- NOTE | 2023-08-22 19:01 | ED.CHESTPAIN ---
HPI - Chest Pain General Chief Complaint: Chest Pain Stated Complaint: heart attack Time Seen by Provider: 08/22/23 15:58 Source: patient Mode of arrival: ambulatory Limitations: no limitations History of Present Illness HPI narrative: 28 YEARS OLD MALE CAME TO THE ED BY PRIVATE CAR COMPLAINING OF FAST HEARTBEAT AND DIZZY FEELING. STARTED TODAY AFTERNOON LASTED FOR 2 HOURS. PATIENT HAD HIS PER THE YESTERDAY AND HAD QUITE A BIT OF ALCOHOL LAST NIGHT. HISTORY OF ANXIETY AND DEPRESSION, HISTORY OF SIMILAR SYMPTOMS SECONDARY TO PANIC ATTACKS. PATIENT IS CONCERNED ABOUT THE POSSIBILITY OF HEART ATTACK. PATIENT DENIES ANY CHEST PAIN, SHORTNESS OF BREATH, NAUSEA, VOMITING, ABDOMINAL PAIN OR BACK PAIN. 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 Related Data Home Medications Medication Instructions Recorded Confirmed No Home Medications 09/06/19 09/06/19 Allergies Allergy/AdvReac Type Severity Reaction Status Date / Time No Known Allergies Allergy Verified 08/22/23 16:41 Review of Systems Review of Systems: All systems reviewed & are unremarkable except as noted in HPI and below PMFSH Past Medical History Medical History Anxiety Deaf-mutism Surgical History Surgical History No pertinent past surgical history Social History Social History Gender identity (if verbalized by the patient): Male Exam Narrative: GENERAL APPEARANCE: WELL-DEVELOPED, WELL-NOURISHED, PATIENT IS DEAF SKIN: NORMAL COLOR HEAD: NORMOCEPHALIC, NONTRAUMATIC EYES: CLEAR CONJUNCTIVA ENT: OROPHARYNX NORMAL, EARS NORMAL, NOSE NORMAL NECK: SUPPLE, NONTENDER CHEST AND RESPIRATORY: AIRWAY PATENT, NO RESPIRATORY DISTRESS, NO ACCESSORY MUSCLE USE HEART: REGULAR RATE/RHYTHM ABDOMEN: SOFT, NONTENDER, NO ORGANOMEGALY, QUIET BOWEL SOUNDS VASCULAR: NORMAL PERIPHERAL PULSES, NORMAL CAPILLARY REFILL. MUSCULOSKELETAL: NORMAL RANGE OF MOTION, NONTENDER BACK NEUROLOGIC: ALERT AND ORIENTED ?3, INTAKE RN IS NORMAL TESTED, NO GROSS MOTOR DEFICIT Course Vital Signs Vital signs: Vital Signs Temperature 36.6 C 08/22/23 13:35 Pulse Rate 108 H 08/22/23 13:35 Respiratory Rate 18 08/22/23 13:35 Blood Pressure 119/97 H 08/22/23 13:35 Pulse Oximetry 100 08/22/23 13:35 Oxygen Delivery Room Air 08/22/23 13:35 Temperature 36.6 C 08/22/23 13:35 Pulse Rate 92 08/22/23 18:36 Respiratory Rate 16 08/22/23 18:36 Blood Pressure 143/88 H 08/22/23 18:36 Pulse Oximetry 100 08/22/23 18:36 Oxygen Delivery Room Air 08/22/23 16:31 MDM - Chest Pain MDM Narrative Medical decision making narrative: DIFFERENTIAL DIAGNOSIS INCLUDE ANXIETY LIKE SYMPTOMS, ELECTROLYTE IMBALANCE, ALCOHOL INTOXICATION, ORTHOSTATIC HYPOTENSION. BLOOD WORKUP TODAY SHOWED WBC OF 11.7, URINE DRUG SCREEN IS NEGATIVE, CHEST X-RAY SHOWED NO ACUTE ABNORMALITIES, EKG ON ARRIVAL SHOWED NORMAL SINUS RHYTHM. HEART RATE ON ARRIVAL WAS 108, AT THE TIME OF DISCHARGE 88. PATIENT FEELING MUCH BETTER AND READY TO GO HOME. Differential Diagnosis Differential diagnosis: Likely other ( ABOVE) Lab Data 08/22/23 16:06 08/22/23 16:06 Labs: Lab Results 08/22/23 08/22/23 08/22/23 Range/Units 16:06 16:06 19:26 WBC 11.7 H (4.5-10.0) K/mm3 RBC 5.82 (4.6-6.20) M/mm3 Hgb 14.6 (14.0-18.0) g/dL Hct 43.7 (42.0-52.0) % MCV 75.1 L (80-100) fl MCH 25.1 L (26-34) pg MCHC 33.4 (32-36) g/dl RDW 14.3 (11.5-14.5) % Plt Count 249 (
--- NOTE | 2023-08-22 19:10 | ECG_ITS ---
Test Date: 2023-08-22 19:15:18 Measurements Intervals [place] Rate: 76 P: 67 AL: 187 QRS: 51 QRSD: 92 T: 75 QT: 347 QTc: 392 Interpretive Statements SINUS RHYTHM WITH SINUS ARRHYTHMIA ST ELEVATION CONSISTENT WITH INJURY, PERICARDITIS, OR EARLY REPOLARIZATION BASELINE ARTIFACT- II, III, V3 ABNORMAL ECG Compared to ECG 08/22/2023 13:34:37 ST (T wave) deviation now present Early repolarization now present Sinus tachycardia no longer present Electronically Signed On 08-23-2023 06:08:07 CDT by [place] D.O.
[2023-08-22 20:04] LABS: Troponin I < 0.012 ng/mL (0.000-0.034)
[2023-08-22 20:25] LABS: Barbiturate Screen Urine Negative (Negative); Benzodiazepines Screen Urine Negative (Negative)
[2023-08-22 20:26] LABS: Troponin I < 0.012 ng/mL (0.000-0.034)
[2023-08-22 20:26] LABS: Amphetamine Screen Urine Negative (Negative); Cannabinoid Screen Urine Negative (Negative); Cocaine Screen Urine Negative (Negative); Methadone Screen Urine Negative (Negative); Opiate Screen Urine Negative (Negative); Phencyclidine Screen Urine Negative (Negative)
== END 2023-08-22 21:14 | disposition home or self-care (01) ==
PROVIDERS: Emergency Medicine; Physician Assistant; Emergency Provider Emergency Medicine
DX: R00.2 Palpitations (principal); F41.9 Anxiety disorder, unspecified; H91.3 Deaf nonspeaking, not elsewhere classified
CPT/HCPCS: 36415; 71046; 80053; 80307; 83690; 83735; 84443; 84484; 85025; 85380; 85610; 85730; 93005; 99284

== ENCOUNTER 2023-12-29 23:42 | Emergency (ER) | payer SELFPAY ==
--- NOTE | ~2023-12-29 | CT_ITS ---
Non-contrast Head CT History: Altered mental status Technique: Axial non-contrast imaging of the brain was performed. Dose reduction technique was used on this scan by utilizing automated exposure control and iterative reconstruction technique. The dose -length product (DLP) was 681.00 mGy-cm. Findings: There is no evidence of intracranial hemorrhage, mass lesion, or acute infarct. Brain par enchyma appears normal. The ventricles and subarachnoid spaces are normal in size. The calvarium ap pears normal. The visualized paranasal sinuses and mastoid air cells are clear. Impression: No significant abnormality seen. Reviewed, dictated and finalized at location . OR SQL SERVER DATABASE DEVELOPER Impression: No significant abnormality seen.
[2023-12-29 23:49] VITALS: BP 131/92; PULSE 74; RESP 16; TEMP 36.7; O2SAT 96
--- NOTE | 2023-12-29 23:50 | ECG_ITS ---
Test Date: 2023-12-29 23:53:16 Measurements Intervals [place] Rate: 76 P: 61 UT: 304 QRS: 43 QRSD: 89 T: 67 QT: 348 QTc: 393 Interpretive Statements SINUS RHYTHM WITH FIRST DEGREE AV BLOCK BORDERLINE ECG Compared to ECG 08/22/2023 19:15:18 First degree AV block now present Early repolarization no longer present Electronically Signed On 12-30-2023 06:23:04 DISPATCH MACHINE RUNNER by [place] D.O.
[2023-12-30] VITALS (9 sets, daily range): BP systolic 107–133; BP diastolic 65–94; PULSE 77–93; RESP 14–20; O2SAT 95–100
[2023-12-30 00:15] LABS: Ethanol 254 mg/dL (<10)
--- NOTE | 2023-12-30 00:17 | ED_ITS ---
HPI - General Adult General Chief complaint: Alcohol Stated complaint: ETOH, alert Time Seen by Provider: 12/30/23 00:06 History of Present Illness HPI narrative: patient is a 28-year-old gentleman who presents from the local drinking establishment with chief complaint of intoxication. EMS reported the patient is intoxicated and was able to walk to the ambulance. The patient is a chronic alcohol user and was responsive to painful stimuli. Related Data Home Medications Medication Instructions Recorded Confirmed No Home Medications 09/06/19 09/06/19 Allergies Allergy/AdvReac Type Severity Reaction Status Date / Time No Known Allergies Allergy Verified 08/22/23 16:41 Review of Systems Review of Systems: A 10 system review of systems was completed on the patient and is negative except for what is stated in the HPI. Nursing and ancillary documentation was reviewed. [facility] Past Medical History Medical History Anxiety Deaf-mutism Surgical History Surgical History No pertinent past surgical history Social History Social History Gender identity (if verbalized by the patient): Male Exam Narrative: GENERAL: Well-appearing, well-nourished, and in no acute distress. HEAD: Normocephalic, atraumatic. EYES: PERRLA and EOMI. ENT: Nares clear, no rhinorrhea or epistaxis. Mucous membranes moist. NECK: Supple. CHEST: Clear to auscultation. No respiratory distress. HEART: Regular rate and rhythm. No murmur heard. Normal peripheral pulses. ABDOMEN: Soft, nontender, nondistended, normal active bowel sounds. EXTREMITIES: Normal range of motion. No edema. SKIN: Warm, dry, no rash. NEURO: No focal deficits. Drowsy intoxicated, patient is chronically mute. PSYCH: Normal mood and affect. Course Vital Signs Vital signs: Vital Signs Temperature 36.7 C 12/29/23 23:49 Pulse Rate 74 12/29/23 23:49 Respiratory Rate 16 12/29/23 23:49 Blood Pressure 131/92 H 12/29/23 23:49 Pulse Oximetry 96 12/29/23 23:49 Oxygen Delivery Room Air 12/29/23 23:49 Temperature 36.7 C 12/29/23 23:49 Pulse Rate 86 12/30/23 03:56 Respiratory Rate 18 12/30/23 03:56 Blood Pressure 107/78 12/30/23 03:56 Pulse Oximetry 100 12/30/23 03:56 Oxygen Delivery Room Air 12/29/23 23:49 Medical Decision Making MDM Narrative Medical decision making narrative: differential diagnosis includes alcohol intoxication, head injury CT head was ordered and is currently pending ETOH was 256. The patient will be allowed to metabolize to freedom and was the patient is showing signs of clinical sobriety plan will be to discharge the patient Vital Signs Vital Signs: Vital Signs Temperature 36.7 C 12/29/23 23:49 Pulse Rate 74 12/29/23 23:49 Respiratory Rate 16 12/29/23 23:49 Blood Pressure 131/92 H 12/29/23 23:49 Pulse Oximetry 96 12/29/23 23:49 Oxygen Delivery Room Air 12/29/23 23:49 Temperature 36.7 C 12/29/23 23:49 Pulse Rate 86 12/30/23 03:56 Respiratory Rate 18 12/30/23 03:56 Blood Pressure 107/78 12/30/23 03:56 Pulse Oximetry 100 12/30/23 03:56 Oxygen Delivery Room Air 12/29/23 23:49 Lab Data Labs: Lab Results 12/30/23 Range/Units 00:02 Ethyl Alcohol 254 (<10) mg/dL Discharge Plan Discharge Clinical Impression: Alcoholic intoxication Patient Disposition: Home, Self-Care Condition: Stable Instructions: Antibiotic Form, Abuse of Alcohol (ED) Prescriptions: No Action No Home Medications Follow-up/Referrals: PHYSICIAN NOT ON STAFF,NONSTAFF [Primary Care Provider] -
--- NOTE | 2023-12-30 05:50 | PC.NURSE ---
This RN spoke with pts father Spencer who stated he would be unable to pick pt up from hospital till 830-9am.
== END 2023-12-30 07:13 | disposition home or self-care (01) ==
PROVIDERS: Emergency Provider Emergency Medicine
DX: F10.129 Alcohol abuse with intoxication, unspecified (principal); Y90.8 Blood alcohol level of 240 mg/100 ml or more; H91.3 Deaf nonspeaking, not elsewhere classified
CPT/HCPCS: 36415; 70450; 82077; 93005; 99284